=== PATIENT | female | born 1950 | race Caucasian/White ===

== ENCOUNTER 2024-01-24 09:46 | Day surgery (SDC) | payer MEDICARE, OTHER, SELFPAY ==
[2024-01-24] VITALS (15 sets, daily range): BP systolic 107–164; BP diastolic 69–99; BMI 31.5
[2024-01-24 10:30] LABS: Mean Corp Hgb Conc. 34.3 g/dL (33.0-37.0); Mean Corpuscular Hgb 29.3 pg (27.0-31.0); Mean Corpuscular Volume 85.6 fL (81.0-99.0); Mean Platelet Volume 8.7 fL (7.4-10.4); Platelet Count 380 10^3/uL (130-400); Red Blood Cell Count 4.09 10^6/uL (4.20-5.40); Red Cell Dist. Width 12.8 % (11.5-14.5); White Blood Cell Count 7.7 10^3/uL (4.8-10.8)
[2024-01-24 10:44] LABS: Glucose - Point of Care 138 mg/dl (70-99)
[2024-01-24 10:49] LABS: ALT (SGPT) 17 U/L (0-35); AST (SGOT) 25 U/L (14-36); Albumin 4.2 g/dl (3.5-5.0); Alkaline Phosphatase 53 U/L (38-126); Blood Urea Nitrogen 17 mg/dl (7-17); Carbon Dioxide 21 mmol/L (22-30); Chloride 104 mmol/L (98-107); Estimated Creatinine Clearance 86 ml/min; Glucose 153 mg/dl (70-99); Potassium 4.4 mmol/L (3.5-5.1); Sodium 135 mmol/L (135-145); Total Bilirubin 0.5 mg/dl (0.2-1.3); eGFR > 60.00
[2024-01-24] MEDS: NSS 254 ML IV (10:55)
[2024-01-24] MEDS: LOW STRENGTH ASPIRIN 243 MG PO (11:07)
[2024-01-24] MEDS: NSS 1000 IV (12:11)
[2024-01-24 12:29] LABS: Glucose - Point of Care 147 mg/dl (70-99)
--- NOTE | 2024-01-24 12:35 | ITS.CL.CATH ---
Supervisor [facility] - Catheterization
Cardiac Catheterization
Procedure Report:
LEFT HEART CATHETERIZATION
Date of Procedure: January 24, 2024
Referring: Dr. Angel Ivy
PROCEDURES:
1. Left heart catheterization with coronary and single-plane left ventriculography
INDICATION: This is a 74-year-old female with a multitude of cardiovascular risk factors who presented to our office for evaluation of exertional dyspnea and chest discomfort. She is now referred for coronary angiography given the multitude of
cardiovascular risk factors and symptomatology
ACCESS: Right radial artery, 6 Lao sheath
HEMODYNAMICS : (mmHg)
AO (s/d) : 148/71, 104
LV (s/d) : 148/19
LVEDP : 22
CORONARY FINDINGS
DOMINANCE: Right
LEFT MAIN: Normal
LEFT ANTERIOR DESCENDING: The LAD arises normally from the left main and runs in the anterior interventricular groove. The LAD has minor irregularities throughout its course but tapers to a small caliber vessel as it approaches the apex.
RAMUS: Small caliber
CIRCUMFLEX: The circumflex is a medium caliber nondominant vessel that supplies a single sizable obtuse marginal branch.
RIGHT CORONARY ARTERY: The right coronary artery is a large-caliber dominant vessel. The proximal right coronary artery has a 30% stenosis. Minor irregularities are noted throughout. The PDA arises from the mid right coronary artery and is a
small to medium caliber vessel. The AV continuation of the RCA supplies a moderate-sized posterolateral branch.
VENTRICULOGRAPHY: Left ventriculography is performed in an POLLARD projection. The digital single-plane left ventricular ejection fraction is estimated at 60%. There is +1 mitral regurgitation
RADIATION SUMMARY: Fluoro Time (min): 2.3, Dose (mGy): 244, DAP (Gy.cm2) : 18.8
Closure Device: TR band
CONCLUSIONS
1. Nonobstructive coronary disease
2. Preserved left ventricular systolic function
RECOMMENDATIONS
1. Echocardiogram as scheduled on 02/19.
2. Follow-up with Dr. Ivy after echocardiogram
Copy to: Dr. Angel Ivy
== END 2024-01-24 15:00 | disposition home or self-care (01) ==
LOC: CATH 09:46
PROVIDERS: ATTENDING PHYSICIAN Internal Medicine Interventional Cardiology; FAMILY PHYSICIAN Internal Medicine; OTHER PHYSICIAN Nuclear Medicine Nuclear Cardiology
DX: I25.10 Atherosclerotic heart disease of native coronary artery without angina pectoris (principal); R06.09 Other forms of dyspnea; R07.89 Other chest pain
CPT/HCPCS: 80053; 82962; 85027; 93458; C1894; Q9967

== ENCOUNTER → 2024-02-20 16:01 | Outpatient (REF) | payer MEDICARE, OTHER, SELFPAY | LOC: DHCBS MAIN 16:01 | PROVIDERS: ATTENDING PHYSICIAN Nuclear Medicine Nuclear Cardiology; FAMILY PHYSICIAN Internal Medicine | DX: R06.02 Shortness of breath (principal); R07.89 Other chest pain; I10 Essential (primary) hypertension | CPT/HCPCS: 93306 ==

== ENCOUNTER → 2024-05-15 10:21 | Outpatient (REF) | payer MEDICARE, OTHER, SELFPAY | LOC: WDC 10:21 | PROVIDERS: ATTENDING PHYSICIAN Surgery; FAMILY PHYSICIAN Internal Medicine | DX: Z12.31 Encounter for screening mammogram for malignant neoplasm of breast (principal) | CPT/HCPCS: 77063; 77067 ==

== ENCOUNTER 2024-10-16 06:25 | Day surgery (SDC) | payer MEDICARE, OTHER, SELFPAY ==
[2024-10-16 07:49] LABS: Glucose - Point of Care 102 mg/dl (70-99)
== END 2024-10-16 09:17 | disposition home or self-care (01) ==
LOC: GI 06:25
PROVIDERS: ATTENDING PHYSICIAN Internal Medicine
DX: Z12.11 Encounter for screening for malignant neoplasm of colon (principal); D12.2 Benign neoplasm of ascending colon; D12.3 Benign neoplasm of transverse colon; K57.30 Diverticulosis of large intestine without perforation or abscess without bleeding; K64.9 Unspecified hemorrhoids; Z86.0101 Personal history of adenomatous and serrated colon polyps
CPT/HCPCS: 45385; 45380; 88305; 82962

== ENCOUNTER → 2024-11-24 09:45 | Outpatient (REF) | payer MEDICARE, OTHER, SELFPAY ==
[2024-11-24 10:30] LABS: % Basophils 0.4 % (0-2); % Eosinophils 1.7 % (0-6); % Immature Granulocytes 0.5 % (0-0.5); % Lymphocytes 26.6 % (20.5-51.1); % Monocytes 6.2 % (1.7-9.3); % Neutrophils 64.6 % (42.2-75.2); Absolute Eosinophils 0.2 10^3/uL (0-0.7); Absolute Immature Granulocytes 0.1 10^3/uL (0-0.05); Absolute Lymphocytes 2.5 10^3/uL (1.2-3.4); Absolute Monocytes 0.6 10^3/uL (0.1-0.6); Absolute Neutrophils 5.9 10^3/uL (1.4-6.5); Hematocrit 37.9 % (37.0-47.0); Hemoglobin 12.8 g/dL (12.0-16.0); Mean Corp Hgb Conc. 33.8 g/dL (33.0-37.0); Mean Corpuscular Hgb 29.1 pg (27.0-31.0); Mean Corpuscular Volume 86.1 fL (81.0-99.0); Mean Platelet Volume 8.4 fL (7.4-10.4); Nucleated Red Blood Cells % 0 %; Platelet Count 364 10^3/uL (130-400); Red Cell Dist. Width 12.3 % (11.5-14.5); White Blood Cell Count 9.2 10^3/uL (4.8-10.8)
[2024-11-24 11:02] LABS: ALT (SGPT) 17 U/L (0-35); AST (SGOT) 22 U/L (14-36); Albumin 4.7 g/dl (3.5-5.0); Alkaline Phosphatase 63 U/L (38-126); Blood Urea Nitrogen 15 mg/dl (7-17); Calcium 10.5 mg/dl (8.4-10.2); Carbon Dioxide 23 mmol/L (22-30); Chloride 102 mmol/L (98-107); Glucose 62 mg/dl (70-99); HDL Cholesterol 52 mg/dl; LDL Cholesterol, Calculated 129 mg/dl; Potassium 4.2 mmol/L (3.5-5.1); Sodium 137 mmol/L (135-145); Total Bilirubin 0.3 mg/dl (0.2-1.3); Total Cholesterol 210 mg/dl (50-199); Total Protein 7.6 g/dl (6.3-8.2); Triglyceride 147 mg/dl (10-149); Very Low Density Lipoprotein 29 mg/dl (0-30); eGFR > 60.00
[2024-11-24 11:16] LABS: Microalbumin, Random Urine <0.6 mg/dl (0.6-1.7)
[2024-11-24 11:31] LABS: TSH Reflex To Free T4 1.83 uIU/ml (0.47-4.68)
== END ==
LOC: REG 09:45
PROVIDERS: ATTENDING PHYSICIAN Internal Medicine
DX: Z85.3 Personal history of malignant neoplasm of breast (principal); Z79.4 Long term (current) use of insulin; I10 Essential (primary) hypertension; E11.9 Type 2 diabetes mellitus without complications; E78.2 Mixed hyperlipidemia; E03.9 Hypothyroidism, unspecified
CPT/HCPCS: 36415; 80053; 80061; 82043; 82570; 83036; 84443; 85025

== ENCOUNTER → 2024-12-31 13:20 | Outpatient (REF) | payer MEDICARE, OTHER, SELFPAY | LOC: RAD 13:20 | PROVIDERS: ATTENDING PHYSICIAN Internal Medicine | DX: Z13.820 Encounter for screening for osteoporosis (principal); M81.0 Age-related osteoporosis without current pathological fracture | CPT/HCPCS: 77080 ==

== ENCOUNTER → 2025-05-19 10:54 | Outpatient (REF) | payer MEDICARE, OTHER, SELFPAY | LOC: WDC 10:54 | PROVIDERS: ATTENDING PHYSICIAN Surgery; FAMILY PHYSICIAN Internal Medicine | DX: Z12.31 Encounter for screening mammogram for malignant neoplasm of breast (principal) | CPT/HCPCS: 77063; 77067 ==

== ENCOUNTER → 2025-06-23 14:21 | Outpatient (REF) | payer MEDICARE, OTHER, SELFPAY | LOC: REG 14:21 | PROVIDERS: ATTENDING PHYSICIAN Internal Medicine; FAMILY PHYSICIAN Internal Medicine | DX: R19.7 Diarrhea, unspecified (principal) | CPT/HCPCS: 87045; 87046; 87324; 87328; 87329; 87427; 87449; 89055 ==

== ENCOUNTER 2025-10-26 06:30 | Day surgery (SDC) | payer MEDICARE, OTHER, SELFPAY ==
[2025-10-26 10:00] LABS: Glucose - Point of Care 155 mg/dl (70-99)
== END 2025-10-26 11:17 | disposition home or self-care (01) ==
LOC: GI 06:30
PROVIDERS: ATTENDING PHYSICIAN Internal Medicine; FAMILY PHYSICIAN Internal Medicine
DX: R09.A2 Foreign body sensation, throat (principal); K44.9 Diaphragmatic hernia without obstruction or gangrene; K31.7 Polyp of stomach and duodenum; K31.89 Other diseases of stomach and duodenum; K22.89 Other specified disease of esophagus; K29.50 Unspecified chronic gastritis without bleeding
CPT/HCPCS: 43239; 82962; 88305; 88342